=== PATIENT | female | born 1990 ===

== ENCOUNTER 2018-05-04 18:28 | Inpatient (IN) | payer OTHER ==
[~2018-05-04] VITALS: Ht 175.3 cm; Wt 79.4 kg
[2018-05-04] MEDS ORDERED: PRENATABS RX T1 EACH PO (20:15)
== END 2018-05-07 12:51 | disposition home or self-care (01) | DRG 781 ==
LOC: OB/GYN 18:28 → LDR 18:28 → OB/GYN 05-05 10:17
PROC: 4A1HXCZ Monitoring of Products of Conception, Cardiac Rate, External Approach (ICD-10-PCS; principal; 2018-05-04)
PROC: BU4CZZZ Ultrasonography of Uterus and Ovaries (ICD-10-PCS; 2018-05-04)
PROC: BY4CZZZ Ultrasonography of Second Trimester, Single Fetus (ICD-10-PCS; 2018-05-04)
DX: O46.8X2 Other antepartum hemorrhage, second trimester (principal); O23.42 Unspecified infection of urinary tract in pregnancy, second trimester; Z34.82 Encounter for supervision of other normal pregnancy, second trimester